=== PATIENT | male | born 1975 | race African-American/Black ===

== ENCOUNTER 2019-05-11 00:57 | Observation (INO) ==
[2019-05-11] MEDS ORDERED: POTASSIUM CHLORIDE 20 MEQ TABLET PO PRN (03:13)
[2019-05-11] MEDS ORDERED: MORPHINE 4 MG/1 ML VIAL IV PRN (03:13)
[2019-05-11] MEDS ORDERED: LABETALOL 20 MG/4 ML SYRINGE IV PRN (03:20)
[2019-05-11] MEDS ORDERED: ENOXAPARIN 30 MG/0.3 ML SYRINGE SUBCUT SCH ×2 (03:30→13:00)
[2019-05-11] MEDS ORDERED: PNEUMOCOCCAL VACCINE (23 VALENT) 0.5 ML VIAL IM ONE (03:59)
[2019-05-11] MEDS: NITROGLYCERIN 2% OINT 1 INCH/GM PACK TOP SCH ×2 (05:47→12:30)
[2019-05-11 06:49] LABS: Basophils # 0.1 10*3/uL (0.0-0.2); Basophils % 0.6 % (0.0-0.8); Eosinophils # 0.1 10*3/uL (0.0-0.87); Eosinophils % 1.2 % (0.00-10.9); Hemoglobin 12.7 GM/DL (14.0-18.0); Immature Granulocytes % 0.5 %; Immature Granulocytes Absolute 0.05 #; Lymphocytes % 20.1 % (21.2-54.2); Mean Corpuscular HGB Conc 33.4 GM/DL (32-36); Mean Corpuscular Volume 90.5 FL (87-102); Mean Platelet Volume 10.1 FL (9.6-12.0); Neutrophils % 71.6 % (38.7-73.9); Platelet Count 226 T/CUMM (130-400); Red Cell Distribution Width 14.3 % (9.3-17.3); White Blood Count 9.8 T/CUMM (4-12)
[2019-05-11 07:25] LABS: Bilirubin,Total 0.5 MG/DL (0.2-1.0); Calcium 7.9 MG/DL (8.5-10.1); Osmolality,Calculated 285.1 MOS/KG (273-304); Total Protein 7.5 G/DL (6.4-8.3)
[2019-05-11 08:48] LABS: Risk Ratio 3.2; Thyroid Stimulating Hormone 2.98 uIU/ml (0.358-3.74)
[2019-05-11] MEDS ORDERED: ASPIRIN EC 325 MG TABLET PO SCH (09:00)
[2019-05-11] MEDS ORDERED: amLODIPine 5 MG TABLET PO SCH (09:00)
[2019-05-11] MEDS: METOPROLOL TARTRATE 25 MG TABLET PO SCH ×3 (09:44→21:28)
[2019-05-11 11:34] LABS: Barbiturates Screen,Urine Negative (Negative); Benzodiazepines Screen,Urine Negative (Negative); Cannabinoid Screen,Urine Negative (Negative); Opiate Screen,Urine Negative (Negative); Phencyclidine Screen,Urine Negative (Negative)
[2019-05-11] MEDS ORDERED: FUROSEMIDE 40 MG/4 ML VIAL IV ONE (12:37)
[2019-05-11] MEDS ORDERED: TAMSULOSIN 0.4 MG CAPSULE PO SCH (21:00)
[2019-05-11] MEDS ORDERED: ATORVASTATIN 40 MG TABLET PO SCH (21:00)
[2019-05-11] MEDS ORDERED: ATORVASTATIN 20 MG TABLET PO SCH (21:00)
[2019-05-11] MEDS: FUROSEMIDE 40 MG TABLET PO SCH (21:28)
[2019-05-12 05:54] LABS: Basophils % 0.4 % (0.0-0.8); Eosinophils # 0.1 10*3/uL (0.0-0.87); Eosinophils % 1.4 % (0.00-10.9); Hemoglobin 13.7 GM/DL (14.0-18.0); Immature Granulocytes % 0.5 %; Immature Granulocytes Absolute 0.05 #; Lymphocytes % 19.3 % (21.2-54.2); Mean Corpuscular HGB Conc 33.4 GM/DL (32-36); Mean Corpuscular Volume 90.1 FL (87-102); Mean Platelet Volume 10.8 FL (9.6-12.0); Monocytes % 7.6 % (1.7-12.7); Neutrophils % 70.8 % (38.7-73.9); Platelet Count 230 T/CUMM (130-400); Red Blood Count 4.55 MC/CUMM (3.8-5.5); Red Cell Distribution Width 14.1 % (9.3-17.3); White Blood Count 10.1 T/CUMM (4-12)
[2019-05-12 06:16] LABS: Calcium 8.3 MG/DL (8.5-10.1); Osmolality,Calculated 287.1 MOS/KG (273-304)
[2019-05-12] MEDS: FUROSEMIDE 40 MG TABLET PO SCH (08:50)
[2019-05-12] MEDS ORDERED: amLODIPine 10 MG TABLET PO SCH (09:00)
[2019-05-12] MEDS ORDERED: METOPROLOL TARTRATE 50 MG TABLET PO SCH (09:00)
[2019-05-12] MEDS ORDERED: ASPIRIN EC 81 MG TABLET PO SCH (09:00)
[2019-05-12 09:03] VITALS: BP 142/82
== END 2019-05-12 12:15 | disposition home or self-care (01) ==
LOC: N.TELES → SUATTDRO 02:11
PROVIDERS: ADMIT Hospitalist; ATTEND Hospitalist

== ENCOUNTER 2019-05-31 08:31 | Observation (INO) ==
[2019-05-31] MEDS ORDERED: METOPROLOL TARTRATE 5 MG/5 ML VIAL IV STA (08:53)
[2019-05-31 09:10] LABS: Basophils % 0.2 % (0.0-0.8); Eosinophils % 0.1 % (0.00-10.9); Hematocrit 42.8 VOL% (42.0-52.0); Hemoglobin 14.6 GM/DL (14.0-18.0); Immature Granulocytes % 0.4 %; Immature Granulocytes Absolute 0.05 #; Lymphocytes % 7.3 % (21.2-54.2); Mean Corpuscular HGB Conc 34.1 GM/DL (32-36); Mean Corpuscular Volume 87.7 FL (87-102); Mean Platelet Volume 10.5 FL (9.6-12.0); Monocytes % 5.3 % (1.7-12.7); Neutrophils % 86.7 % (38.7-73.9); Platelet Count 291 T/CUMM (130-400); Red Blood Count 4.88 MC/CUMM (3.8-5.5); Red Cell Distribution Width 13.4 % (9.3-17.3); White Blood Count 14.1 T/CUMM (4-12)
[2019-05-31 09:33] LABS: Albumin 3.3 G/DL (3.4-5.0); Bilirubin,Total 0.5 MG/DL (0.2-1.0); Calcium 8.6 MG/DL (8.5-10.1); Total Protein 8.5 G/DL (6.4-8.3)
[2019-05-31] MEDS ORDERED: ALBUTEROL/IPRATROPIUM 3 ML NEB RESP TX PRN (14:17)
[2019-05-31] MEDS ORDERED: ONDANSETRON 4 MG/2 ML VIAL IV PRN (14:17)
[2019-05-31] MEDS ORDERED: ACETAMINOPHEN 325 MG TABLET PO PRN (14:17)
[2019-05-31] MEDS ORDERED: LACTATED RINGERS 1,000 ML IV SCH (14:30)
[2019-05-31] MEDS: LACTATED RINGERS 1,000 ML IV SCH ×2 (17:20→17:37)
[2019-05-31] MEDS: HYDROmorphone 2 MG/1 ML VIAL IV PRN (17:33)
[2019-05-31] MEDS: PIPERACILLIN/TAZOBACTAM 3,375 MG in SODIUM CHLORIDE 0.9% 100 ML IV SCH (17:36)
[2019-05-31] MEDS: FUROSEMIDE 40 MG TABLET PO SCH (20:56)
[2019-05-31] MEDS: METOPROLOL TARTRATE 50 MG TABLET PO SCH (20:56)
[2019-05-31] MEDS: metroNIDAZOLE INJ 500 MG in PREMIX 1 EACH IV SCH (20:57)
[2019-06-01] MEDS: PIPERACILLIN/TAZOBACTAM 3,375 MG in SODIUM CHLORIDE 0.9% 100 ML IV SCH ×3 (00:55→16:16)
[2019-06-01] MEDS: metroNIDAZOLE INJ 500 MG in PREMIX 1 EACH IV SCH ×3 (05:16→21:25)
[2019-06-01] MEDS: LACTATED RINGERS 1,000 ML IV SCH ×2 (05:19→17:34)
[2019-06-01 05:37] LABS: Basophils % 0.4 % (0.0-0.8); Eosinophils # 0.1 10*3/uL (0.0-0.87); Eosinophils % 1.3 % (0.00-10.9); Hematocrit 41.2 VOL% (42.0-52.0); Immature Granulocytes % 0.4 %; Immature Granulocytes Absolute 0.04 #; Lymphocytes # 2.1 10*3/uL (1.4-4.0); Lymphocytes % 21.3 % (21.2-54.2); Mean Corpuscular Volume 89.4 FL (87-102); Mean Platelet Volume 10.2 FL (9.6-12.0); Monocytes % 9.6 % (1.7-12.7); Platelet Count 249 T/CUMM (130-400); Red Blood Count 4.61 MC/CUMM (3.8-5.5); Red Cell Distribution Width 13.5 % (9.3-17.3); White Blood Count 9.8 T/CUMM (4-12)
[2019-06-01 05:56] LABS: Calcium 8.7 MG/DL (8.5-10.1); Osmolality,Calculated 287.1 MOS/KG (273-304)
[2019-06-01] MEDS: HYDROmorphone 2 MG/1 ML VIAL IV PRN (08:03)
[2019-06-01] MEDS: ASPIRIN CHEW 81 MG TABLET PO SCH (08:04)
[2019-06-01] MEDS: PANTOPRAZOLE 40 MG TABLET PO SCH (08:04)
[2019-06-01] MEDS: FUROSEMIDE 40 MG TABLET PO SCH ×2 (08:04→21:19)
[2019-06-01] MEDS: METOPROLOL TARTRATE 50 MG TABLET PO SCH ×2 (08:04→21:19)
[2019-06-01] MEDS: TAMSULOSIN 0.4 MG CAPSULE PO SCH (08:04)
[2019-06-01] MEDS ORDERED: amLODIPine 10 MG TABLET PO SCH (09:00)
[2019-06-01] MEDS: hydrALAZINE 20 MG/1 ML VIAL IV PRN (13:31)
[2019-06-02] MEDS: PIPERACILLIN/TAZOBACTAM 3,375 MG in SODIUM CHLORIDE 0.9% 100 ML IV SCH ×2 (00:36→08:18)
[2019-06-02] MEDS: hydrALAZINE 20 MG/1 ML VIAL IV PRN (01:49)
[2019-06-02] MEDS: metroNIDAZOLE INJ 500 MG in PREMIX 1 EACH IV SCH (04:56)
[2019-06-02] MEDS: LACTATED RINGERS 1,000 ML IV SCH (07:18)
[2019-06-02 07:45] LABS: Basophils # 0.1 10*3/uL (0.0-0.2); Basophils % 0.6 % (0.0-0.8); Eosinophils # 0.1 10*3/uL (0.0-0.87); Eosinophils % 1.3 % (0.00-10.9); Hematocrit 45.7 VOL% (42.0-52.0); Hemoglobin 15.8 GM/DL (14.0-18.0); Immature Granulocytes % 0.4 %; Immature Granulocytes Absolute 0.04 #; Lymphocytes % 19.8 % (21.2-54.2); Mean Corpuscular HGB Conc 34.6 GM/DL (32-36); Mean Corpuscular Volume 86.7 FL (87-102); Mean Platelet Volume 10.7 FL (9.6-12.0); Monocytes % 7.1 % (1.7-12.7); Neutrophils % 70.8 % (38.7-73.9); Platelet Count 282 T/CUMM (130-400); Red Blood Count 5.27 MC/CUMM (3.8-5.5); Red Cell Distribution Width 13.6 % (9.3-17.3); White Blood Count 9.9 T/CUMM (4-12)
[2019-06-02 08:04] LABS: Albumin 3.2 G/DL (3.4-5.0); Bilirubin,Total 1.2 MG/DL (0.2-1.0); Calcium 8.8 MG/DL (8.5-10.1); Osmolality,Calculated 275.8 MOS/KG (273-304); Total Protein 8.6 G/DL (6.4-8.3)
[2019-06-02] MEDS: FUROSEMIDE 40 MG TABLET PO SCH (08:20)
[2019-06-02] MEDS: TAMSULOSIN 0.4 MG CAPSULE PO SCH (08:20)
[2019-06-02] MEDS: PANTOPRAZOLE 40 MG TABLET PO SCH (08:20)
[2019-06-02] MEDS: ASPIRIN CHEW 81 MG TABLET PO SCH (08:20)
[2019-06-02] MEDS: METOPROLOL TARTRATE 50 MG TABLET PO SCH (08:20)
[2019-06-02] MEDS ORDERED: POTASSIUM CHLORIDE 20 MEQ TABLET PO ONE (10:02)
[2019-06-02 11:29] VITALS: BP 150/101
== END 2019-06-02 14:40 | disposition home or self-care (01) ==
LOC: N.ED 08:31 → INTOOBSV 14:17 → N.EDINP 14:17 → N.3E 14:59
PROVIDERS: ADMIT Surgery; ATTEND Surgery

== ENCOUNTER 2020-07-25 07:29 | Observation (INO) ==
[2020-07-25] MEDS ORDERED: niCARdipine INJ 25 MG in SODIUM CHLORIDE 0.9% 240 ML IV PRN (08:11)
[2020-07-25] MEDS ORDERED: niCARdipine 25 MG/10 ML VIAL IV ONE (08:29)
[2020-07-25 08:54] LABS: Bacteria,Urine Occasional /HPF (Few); Bilirubin,Urine Negative (Negative); Blood, Urine Small mg/dL (Negative); Glucose,Urine (UA) Negative (Negative); Ketones,Urine Negative (Negative); Mucus,Urine Occasional /LPF (Occasional); Nitrite,Urine Negative (Negative); Protein,Urine 100 MG/DL; RBC,Urine 2 /HPF (0-4); Urine Appearance CLEAR (Clear); Urine Color Straw (Yellow); Urine Specific Gravity 1.006 (1.001-1.035); Urine Urobilinogen < 2.0 EU/DL (0.2-1.0); WBC,Urine <1 /HPF (0-6)
[2020-07-25 09:10] LABS: Basophils % 0.3 % (0.0-0.8); Eosinophils # 0.1 10*3/uL (0.0-0.87); Hematocrit 39.2 VOL% (42.0-52.0); Hemoglobin 13.2 GM/DL (14.0-18.0); Immature Granulocytes % 0.4 %; Immature Granulocytes Absolute 0.05 #; Lymphocytes # 1.4 10*3/uL (1.4-4.0); Lymphocytes % 11.3 % (21.2-54.2); Mean Corpuscular HGB Conc 33.7 GM/DL (32-36); Mean Platelet Volume 10.8 FL (9.6-12.0); Monocytes % 6.2 % (1.7-12.7); Neutrophils % 80.8 % (38.7-73.9); Platelet Count 234 T/CUMM (130-400); Red Blood Count 4.56 MC/CUMM (3.8-5.5); Red Cell Distribution Width 13.2 % (9.3-17.3); White Blood Count 12.7 T/CUMM (4-12)
[2020-07-25 09:21] LABS: Calcium 8.3 MG/DL (8.5-10.1); Osmolality,Calculated 287.3 MOS/KG (273-304)
[2020-07-25 09:23] LABS: Barbiturates Screen,Urine Negative (Negative); Benzodiazepines Screen,Urine Negative (Negative); Cannabinoid Screen,Urine Negative (Negative); Opiate Screen,Urine Negative (Negative); Phencyclidine Screen,Urine Negative (Negative)
[2020-07-25 09:26] LABS: PT Patient Result 10.9 SECS (9.8-11.9); Partial Thromboplastin Time 28.3 SECS (23.9-33.8)
[2020-07-25] MEDS ORDERED: FUROSEMIDE 20 MG/2 ML VIAL IV STA (10:15)
[2020-07-25] MEDS ORDERED: AZITHROMYCIN 250 MG TABLET PO STA (10:27)
[2020-07-25] MEDS ORDERED: hydrALAZINE 20 MG/1 ML VIAL IV STA (10:57)
[2020-07-25] MEDS ORDERED: hydrALAZINE 20 MG/1 ML VIAL ONE (10:58)
[2020-07-25] MEDS ORDERED: cloNIDine 0.1 MG TABLET PO STA (11:29)
[2020-07-25] MEDS ORDERED: GLUCAGON 1 MG VIAL IM PRN (11:42)
[2020-07-25] MEDS ORDERED: DEXTROSE 50% 25 GM/50 ML VIAL IV PRN (11:42)
[2020-07-25] MEDS ORDERED: BISACODYL 5 MG TABLET PO PRN (11:42)
[2020-07-25] MEDS ORDERED: DOCUSATE SODIUM 100 MG CAPSULE PO PRN (11:42)
[2020-07-25] MEDS ORDERED: LACTULOSE 20 GM/30 ML UDCUP PO PRN (11:42)
[2020-07-25] MEDS ORDERED: ONDANSETRON 4 MG/2 ML VIAL IV PRN (11:42)
[2020-07-25] MEDS ORDERED: CALCIUM CARBONATE CHEW 500 MG TABLET PO PRN (11:42)
[2020-07-25] MEDS ORDERED: NICOTINE 21 MG/24 HR PATCH TRANSDERM PRN (11:42)
[2020-07-25] MEDS ORDERED: ACETAMINOPHEN 325 MG TABLET PO PRN (11:42)
[2020-07-25] MEDS ORDERED: ALUMINUM/MAGNES/SIMETH MAX STR 30 ML UDCUP PO PRN (11:42)
[2020-07-25] MEDS ORDERED: SIMETHICONE CHEW 125 MG TABLET PO PRN (11:42)
[2020-07-25] MEDS ORDERED: guaiFENesin/DM ER 600-30 MG TABLET PO PRN (11:42)
[2020-07-25] MEDS ORDERED: hydrALAZINE 20 MG/1 ML VIAL IV PRN (11:42)
[2020-07-25] MEDS ORDERED: ZALEPLON 5 MG CAPSULE PO PRN (11:42)
[2020-07-25] MEDS ORDERED: diphenhydrAMINE CAP 25 MG CAPSULE PO PRN (11:42)
[2020-07-25] MEDS ORDERED: cloNIDine 0.1 MG TABLET PO SCH (14:30)
[2020-07-25] MEDS: ALBUTEROL/IPRATROPIUM 3 ML NEB RESP TX SCH ×2 (14:41→19:22)
[2020-07-25] MEDS: HEPARIN 5,000 UNIT/1 ML VIAL SUBCUT SCH ×2 (14:55→22:00)
[2020-07-25] MEDS ORDERED: INFLUENZA VIRUS VACCINE 0.5 ML SYRINGE IM ONE (16:26)
[2020-07-25] MEDS ORDERED: PNEUMOCOCCAL VACCINE (23 VALENT) 0.5 ML VIAL IM ONE (16:26)
[2020-07-25] MEDS ORDERED: PNEUMOCOCCAL VACCINE (13 VALENT) 0.5 ML SYRINGE IM ONE (16:35)
[2020-07-25] MEDS ORDERED: carvediloL 6.25 MG TABLET PO SCH (21:00)
[2020-07-25] MEDS ORDERED: ATORVASTATIN 40 MG TABLET PO SCH (21:00)
[2020-07-25] MEDS ORDERED: METOPROLOL TARTRATE 25 MG TABLET PO SCH (21:00)
[2020-07-25] MEDS: FUROSEMIDE 40 MG TABLET PO SCH (21:15)
[2020-07-26] MEDS: ALBUTEROL/IPRATROPIUM 3 ML NEB RESP TX SCH ×2 (02:02→07:18)
[2020-07-26 05:41] LABS: Basophils % 0.4 % (0.0-0.8); Eosinophils # 0.1 10*3/uL (0.0-0.87); Hematocrit 35.7 VOL% (42.0-52.0); Hemoglobin 11.9 GM/DL (14.0-18.0); Immature Granulocytes % 0.5 %; Immature Granulocytes Absolute 0.05 #; Lymphocytes # 1.5 10*3/uL (1.4-4.0); Lymphocytes % 14.7 % (21.2-54.2); Mean Corpuscular HGB Conc 33.3 GM/DL (32-36); Mean Corpuscular Volume 87.7 FL (87-102); Mean Platelet Volume 10.7 FL (9.6-12.0); Monocytes % 7.2 % (1.7-12.7); Neutrophils % 76.2 % (38.7-73.9); Platelet Count 234 T/CUMM (130-400); Red Blood Count 4.07 MC/CUMM (3.8-5.5); Red Cell Distribution Width 13.2 % (9.3-17.3); White Blood Count 10.1 T/CUMM (4-12)
[2020-07-26] MEDS: HEPARIN 5,000 UNIT/1 ML VIAL SUBCUT SCH (05:49)
[2020-07-26 06:34] LABS: Calcium 8.3 MG/DL (8.5-10.1); Osmolality,Calculated 285.4 MOS/KG (273-304)
[2020-07-26 06:37] LABS: Albumin 2.7 G/DL (3.4-5.0); Bilirubin,Total 0.9 MG/DL (0.2-1.0); Calcium 8.2 MG/DL (8.5-10.1); Osmolality,Calculated 285.4 MOS/KG (273-304); Total Protein 7.4 G/DL (6.4-8.3)
[2020-07-26 06:41] LABS: Risk Ratio 4.06; VLDL CHOLESTEROL 33.2 MG/DL
[2020-07-26] MEDS ORDERED: SEVELAMER CARBONATE 800 MG TABLET PO SCH (08:00)
[2020-07-26] MEDS: FUROSEMIDE 40 MG TABLET PO SCH (08:23)
[2020-07-26] MEDS ORDERED: ASPIRIN CHEW 81 MG TABLET PO SCH (09:00)
[2020-07-26] MEDS ORDERED: AZITHROMYCIN 250 MG TABLET PO SCH (09:00)
[2020-07-26] MEDS ORDERED: amLODIPine 10 MG TABLET PO SCH (09:00)
[2020-07-26] MEDS ORDERED: METOPROLOL TARTRATE 50 MG TABLET PO SCH (09:00)
[2020-07-26] MEDS ORDERED: PANTOPRAZOLE 40 MG TABLET PO SCH (09:00)
[2020-07-26] MEDS ORDERED: cefTRIAXone 1,000 MG in SYRINGE 1 EACH IV SCH (09:00)
[2020-07-26] MEDS ORDERED: TAMSULOSIN 0.4 MG CAPSULE PO SCH (09:00)
[2020-07-26 09:02] VITALS: BP 151/114
== END 2020-07-26 10:48 | disposition home or self-care (01) ==
LOC: N.ED 07:29 → N.EDINP 07:29 → N.TELES 15:35
PROVIDERS: ADMIT Internal Medicine Geriatric Medicine; ATTEND Internal Medicine Geriatric Medicine

== ENCOUNTER 2021-05-30 13:42 | Inpatient (IN) ==
[2021-05-30] MEDS ORDERED: ONDANSETRON 4 MG/2 ML VIAL IV PRN (15:13)
[2021-05-30] MEDS ORDERED: BISACODYL 5 MG TABLET PO PRN (15:13)
[2021-05-30] MEDS ORDERED: ONDANSETRON 4 MG/2 ML VIAL IV STA (15:16)
[2021-05-30] MEDS ORDERED: MORPHINE 10 MG/1 ML VIAL IV STA (15:16)
[2021-05-30] MEDS ORDERED: HYDROmorphone 2 MG/1 ML VIAL IM STA (15:29)
[2021-05-30] MEDS ORDERED: ONDANSETRON 4 MG/2 ML VIAL IM STA (15:30)
[2021-05-30 15:31] LABS: Basophils % 0.1 % (0.0-0.8); Eosinophils % 0.1 % (0.00-10.9); Hematocrit 33.3 VOL% (42.0-52.0); Immature Granulocytes % 0.6 %; Immature Granulocytes Absolute 0.14 #; Lymphocytes # 0.9 10*3/uL (1.4-4.0); Lymphocytes % 4.2 % (21.2-54.2); Mean Platelet Volume 9.9 FL (9.6-12.0); Platelet Count 247 T/CUMM (130-400); White Blood Count 21.6 T/CUMM (4-12)
[2021-05-30 15:55] LABS: Albumin 3.1 G/DL (3.4-5.0); Bilirubin,Total 0.6 MG/DL (0.20-1.00); Calcium 9.1 MG/DL (8.5-10.1); Osmolality,Calculated 274.1 MOS/KG (273-304); Potassium 3.2 MMOL/L (3.5-5.1); Total Protein 9.1 G/DL (6.4-8.2)
[2021-05-30 16:54] LABS: Band Neutrophils 1 % (0-10); Lymphocytes 2 % (20-55); Microcytosis 1+; Segmented Neutrophils 90 % (50-85); Spherocytes 1+; Total Cells Counted 100
[2021-05-30 16:55] LABS: Platelet Estimate Normal
[2021-05-30] MEDS: ACETAMINOPHEN 325 MG TABLET PO PRN (18:00)
[2021-05-30] MEDS: LACTATED RINGERS 1,000 ML IV SCH (18:21)
[2021-05-30 18:30] LABS: Amorphous Crystals,Urine Occasional /HPF (Few); Bacteria,Urine Occasional /HPF (Few); Bilirubin,Urine Negative (Negative); Blood, Urine Negative (Negative); Glucose,Urine (UA) Negative (Negative); Ketones,Urine Negative (Negative); Mucus,Urine Occasional /LPF (Occasional); Nitrite,Urine Negative (Negative); Protein,Urine >=500 MG/DL; RBC,Urine 1 /HPF (0-4); Squamous Epithelial Cell,Urine Occasional /HPF (0-10); Urine Appearance CLEAR (Clear); Urine Color Yellow (Yellow)
[2021-05-31] MEDS: ACETAMINOPHEN 325 MG TABLET PO PRN (03:22)
[2021-05-31] MEDS: HYDROmorphone 2 MG/1 ML VIAL IV PRN ×4 (05:06→22:29)
[2021-05-31] MEDS: LACTATED RINGERS 1,000 ML IV SCH ×2 (05:09→20:14)
[2021-05-31] MEDS: PANTOPRAZOLE 40 MG TABLET PO SCH (08:30)
[2021-05-31] MEDS ORDERED: MIDAZOLAM 2 MG/2 ML VIAL ONE (10:43)
[2021-05-31] MEDS ORDERED: LIDOCAINE 2% 5 ML VIAL ONE (10:43)
[2021-05-31] MEDS ORDERED: SUCCINYLCHOLINE 200 MG/10 ML VIAL ONE (10:43)
[2021-05-31] MEDS ORDERED: fentaNYL 100 MCG/2 ML VIAL ONE (10:43)
[2021-05-31] MEDS ORDERED: ROCURONIUM 50 MG/5 ML VIAL IV ONE (10:43)
[2021-05-31] MEDS ORDERED: propofoL 200 MG/20 ML VIAL IV ONE (10:43)
[2021-05-31] MEDS ORDERED: LIDOCAINE 1%/EPI INJ 20 ML VIAL ONE (11:20)
[2021-05-31] MEDS ORDERED: TISSUE ADHESIVE 1 EACH APPLICATOR TOP ONE (11:20)
[2021-05-31] MEDS ORDERED: BUPIVACAINE MPF 0.25% 30 ML VIAL ONE (11:20)
[2021-05-31 11:41] LABS: Calcium 9.2 MG/DL (8.5-10.1); Osmolality,Calculated 270.7 MOS/KG (273-304); Potassium 3.5 MMOL/L (3.5-5.1)
[2021-05-31] MEDS ORDERED: HYDROCORTISONE 100 MG VIAL ONE (11:52)
[2021-05-31] MEDS ORDERED: FAMOTIDINE 20 MG/2 ML VIAL IV ONE (11:52)
[2021-05-31] MEDS ORDERED: SODIUM CHLORIDE 0.9% 250 ML IV SCH (12:00)
[2021-05-31] MEDS ORDERED: LACTATED RINGERS 1,000 ML IV SCH (12:00)
[2021-05-31] MEDS ORDERED: GLYCOPYRROLATE 0.4 MG/2 ML VIAL ONE (13:24)
[2021-05-31] MEDS ORDERED: ONDANSETRON 4 MG/2 ML VIAL ONE (13:24)
[2021-05-31] MEDS ORDERED: SEVOFLURANE 1 UNIT/15 MINUTE INH ONE (13:25)
[2021-05-31] MEDS ORDERED: VANCOMYCIN 1,000 MG VIAL INTRAPERIT ONE (15:00)
[2021-06-01] MEDS ORDERED: PHENOL 1.4% THROAT SPRAY 177 ML BOTTLE PO PRN (00:09)
[2021-06-01] MEDS: HYDROmorphone 2 MG/1 ML VIAL IV PRN ×4 (02:58→18:54)
[2021-06-01 06:08] LABS: Basophils % 0.2 % (0.0-0.8); Eosinophils % 0.1 % (0.00-10.9); Hematocrit 27.7 VOL% (42.0-52.0); Hemoglobin 9.4 GM/DL (14.0-18.0); Immature Granulocytes % 1.6 %; Immature Granulocytes Absolute 0.32 #; Lymphocytes # 0.8 10*3/uL (1.4-4.0); Lymphocytes % 3.8 % (21.2-54.2); Mean Corpuscular HGB Conc 33.9 GM/DL (32-36); Mean Corpuscular Volume 90.2 FL (87-102); Mean Platelet Volume 10.4 FL (9.6-12.0); Monocytes % 7.7 % (1.7-12.7); Neutrophils % 86.6 % (38.7-73.9); Platelet Count 239 T/CUMM (130-400); Red Blood Count 3.07 MC/CUMM (3.8-5.5); Red Cell Distribution Width 13.8 % (9.3-17.3); White Blood Count 20.2 T/CUMM (4-12)
[2021-06-01 06:37] LABS: Band Neutrophils 1 % (0-10); Lymphocytes 4 % (20-55); Platelet Estimate Normal; Segmented Neutrophils 90 % (50-85); Total Cells Counted 100
[2021-06-01 06:38] LABS: Hypochromasia Slight
[2021-06-01 06:40] LABS: Calcium 8.5 MG/DL (8.5-10.1); Osmolality,Calculated 279.2 MOS/KG (273-304)
[2021-06-01] MEDS: PANTOPRAZOLE 40 MG TABLET PO SCH (08:27)
[2021-06-01] MEDS: LACTATED RINGERS 1,000 ML IV SCH (08:31)
[2021-06-01] MEDS ORDERED: EPOETIN ALFA-EPBX 2,000 UNIT/ML VIAL IV PRN (09:22)
[2021-06-01] MEDS ORDERED: HEPARIN 10,000 UNIT/10 ML VIAL IV SCH (10:45)
[2021-06-01] MEDS ORDERED: EPOETIN ALFA-EPBX 10,000 UNIT/ML VIAL IV PRN (10:49)
[2021-06-02 05:14] LABS: Basophils # 0.1 10*3/uL (0.0-0.2); Basophils % 0.3 % (0.0-0.8); Eosinophils # 0.1 10*3/uL (0.0-0.87); Eosinophils % 0.4 % (0.00-10.9); Hematocrit 31.1 VOL% (42.0-52.0); Hemoglobin 10.2 GM/DL (14.0-18.0); Immature Granulocytes % 1.8 %; Immature Granulocytes Absolute 0.38 #; Lymphocytes # 1.3 10*3/uL (1.4-4.0); Lymphocytes % 6.1 % (21.2-54.2); Mean Corpuscular HGB Conc 32.8 GM/DL (32-36); Mean Corpuscular Volume 89.6 FL (87-102); Mean Platelet Volume 10.6 FL (9.6-12.0); Monocytes % 6.2 % (1.7-12.7); Neutrophils % 85.2 % (38.7-73.9); Platelet Count 329 T/CUMM (130-400); Red Blood Count 3.47 MC/CUMM (3.8-5.5); White Blood Count 21.6 T/CUMM (4-12)
[2021-06-02 05:40] LABS: Calcium 9.1 MG/DL (8.5-10.1); Osmolality,Calculated 274.2 MOS/KG (273-304); Potassium 3.2 MMOL/L (3.5-5.1)
[2021-06-02 06:22] LABS: Platelet Estimate Normal
[2021-06-02] MEDS: METOPROLOL TARTRATE 100 MG TABLET PO SCH ×2 (08:16→20:39)
[2021-06-02] MEDS: predniSONE 10 MG TABLET PO SCH (08:16)
[2021-06-02] MEDS: amLODIPine 10 MG TABLET PO SCH (08:16)
[2021-06-02] MEDS: ATORVASTATIN 40 MG TABLET PO SCH (08:16)
[2021-06-02] MEDS: PANTOPRAZOLE 40 MG TABLET PO SCH (08:16)
[2021-06-02] MEDS: ASPIRIN CHEW 81 MG TABLET PO SCH (08:16)
[2021-06-02] MEDS: LACTATED RINGERS 1,000 ML IV SCH (10:13)
[2021-06-03] MEDS: PANTOPRAZOLE 40 MG TABLET PO SCH (09:48)
[2021-06-03] MEDS: ASPIRIN CHEW 81 MG TABLET PO SCH (09:48)
[2021-06-03] MEDS: METOPROLOL TARTRATE 100 MG TABLET PO SCH ×2 (09:48→21:46)
[2021-06-03] MEDS: ATORVASTATIN 40 MG TABLET PO SCH (09:49)
[2021-06-03] MEDS: amLODIPine 10 MG TABLET PO SCH (09:49)
[2021-06-03] MEDS: LACTATED RINGERS 1,000 ML IV SCH (16:18)
[2021-06-03] MEDS: HYDROmorphone 2 MG/1 ML VIAL IV PRN (21:45)
[2021-06-04] MEDS: LACTATED RINGERS 1,000 ML IV SCH (04:39)
[2021-06-04] MEDS: predniSONE 10 MG TABLET PO SCH (08:34)
[2021-06-04] MEDS: ASPIRIN CHEW 81 MG TABLET PO SCH (08:34)
[2021-06-04] MEDS: PANTOPRAZOLE 40 MG TABLET PO SCH (08:34)
[2021-06-04] MEDS: ATORVASTATIN 40 MG TABLET PO SCH (08:34)
[2021-06-04] MEDS: METOPROLOL TARTRATE 100 MG TABLET PO SCH ×2 (08:35→21:41)
[2021-06-04] MEDS: amLODIPine 10 MG TABLET PO SCH (08:36)
[2021-06-04] MEDS ORDERED: VANCOMYCIN INJ 1,000 MG in SODIUM CHLORIDE 0.9% 250 ML IV ONE (11:23)
[2021-06-04] MEDS ORDERED: GENTAMICIN INJ 100 MG/100 ML PREMIX IV ONE (11:26)
[2021-06-05] MEDS: ASPIRIN CHEW 81 MG TABLET PO SCH (08:30)
[2021-06-05] MEDS: ATORVASTATIN 40 MG TABLET PO SCH (08:30)
[2021-06-05] MEDS: PANTOPRAZOLE 40 MG TABLET PO SCH (08:30)
[2021-06-05] MEDS: amLODIPine 10 MG TABLET PO SCH (08:30)
[2021-06-05 08:42] LABS: Basophils # 0.1 10*3/uL (0.0-0.2); Basophils % 0.4 % (0.0-0.8); Eosinophils # 0.5 10*3/uL (0.0-0.87); Hematocrit 30.4 VOL% (42.0-52.0); Hemoglobin 9.9 GM/DL (14.0-18.0); Immature Granulocytes % 4.3 %; Immature Granulocytes Absolute 0.72 #; Lymphocytes # 1.8 10*3/uL (1.4-4.0); Lymphocytes % 10.7 % (21.2-54.2); Mean Corpuscular HGB Conc 32.6 GM/DL (32-36); Mean Corpuscular Volume 90.5 FL (87-102); Mean Platelet Volume 10.2 FL (9.6-12.0); NRBC # 0.04 10*3/uL; Neutrophils % 74.6 % (38.7-73.9); Platelet Count 372 T/CUMM (130-400); Red Blood Count 3.36 MC/CUMM (3.8-5.5); Red Cell Distribution Width 14.4 % (9.3-17.3); White Blood Count 16.8 T/CUMM (4-12)
[2021-06-05 09:04] LABS: Eosinophils 4 % (0-10); Lymphocytes 8 % (20-55); Nucleated Red Blood Cells 1 (0-5); Segmented Neutrophils 77 % (50-85); Total Cells Counted 100
[2021-06-05 09:05] LABS: Hypochromasia 1+; Microcytosis 1+; Platelet Estimate Adequate
[2021-06-05] MEDS: METOPROLOL TARTRATE 100 MG TABLET PO SCH (09:44)
[2021-06-06] MEDS: METOPROLOL TARTRATE 100 MG TABLET PO SCH ×2 (00:53→11:08)
[2021-06-06 07:15] LABS: Basophils # 0.1 10*3/uL (0.0-0.2); Basophils % 0.3 % (0.0-0.8); Eosinophils # 0.6 10*3/uL (0.0-0.87); Eosinophils % 3.3 % (0.00-10.9); Hematocrit 30.5 VOL% (42.0-52.0); Hemoglobin 9.8 GM/DL (14.0-18.0); Immature Granulocytes Absolute 0.94 #; Lymphocytes # 1.8 10*3/uL (1.4-4.0); Lymphocytes % 9.7 % (21.2-54.2); Mean Corpuscular HGB Conc 32.1 GM/DL (32-36); Mean Corpuscular Volume 90.5 FL (87-102); Mean Platelet Volume 10.3 FL (9.6-12.0); Monocytes % 6.6 % (1.7-12.7); NRBC # 0.02 10*3/uL; Neutrophils % 75.1 % (38.7-73.9); Platelet Count 415 T/CUMM (130-400); Red Blood Count 3.37 MC/CUMM (3.8-5.5); Red Cell Distribution Width 14.6 % (9.3-17.3); White Blood Count 18.9 T/CUMM (4-12)
[2021-06-06 07:38] LABS: Eosinophils 4 % (0-10); Lymphocytes 7 % (20-55); Platelet Estimate Adequate; Segmented Neutrophils 87 % (50-85); Total Cells Counted 100
[2021-06-06] MEDS: ASPIRIN CHEW 81 MG TABLET PO SCH (09:01)
[2021-06-06] MEDS: ATORVASTATIN 40 MG TABLET PO SCH (09:01)
[2021-06-06] MEDS: amLODIPine 10 MG TABLET PO SCH (09:01)
[2021-06-06] MEDS: predniSONE 10 MG TABLET PO SCH (09:02)
[2021-06-06] MEDS: PANTOPRAZOLE 40 MG TABLET PO SCH (09:02)
[2021-06-06 11:23] VITALS: BP 130/87
[2021-06-06] MEDS ORDERED: VANCOMYCIN INJ 1,000 MG in SODIUM CHLORIDE 0.9% 250 ML IV ONE (14:30)
[2021-06-06] MEDS ORDERED: GENTAMICIN INJ 100 MG/100 ML PREMIX IV ONE (15:30)
== END 2021-06-06 19:34 | disposition home or self-care (01) | DRG 907 ==
LOC: N.EDINP 13:42 → N.ED 13:42 → N.3E 17:00
PROVIDERS: ADMIT Surgery; ATTEND Surgery